=== PATIENT | female | born 1950 | race Caucasian/White ===

== ENCOUNTER → 2021-04-22 05:00 | Outpatient (CLI) | payer MEDICARE, BC, SELFPAY ==
[2021-04-22 16:43] LABS: SARS-CoV-2 RNA PCR Negative
== END ==
PROVIDERS: PCP Family Medicine; Visit Provider Family Medicine
DX: J01.00 Acute maxillary sinusitis, unspecified (principal); Z20.822 Contact with and (suspected) exposure to COVID-19
CPT/HCPCS: C9803; U0003; U0005

== ENCOUNTER 2022-05-30 13:32 | Outpatient (CLI) | payer MEDICARE, BC, SELFPAY ==
--- NOTE | ~2022-05-30 | MM_ITS ---
EXAMINATION: MM screening marielle BI w zamzam HISTORY: Screening mammogram TECHNIQUE: Craniocaudal and mediolateral oblique 3-D tomosynthesis images were obtained and synthetic 2-D images were generated. CAD analysis was submitted and interpreted. COMPARISON: No prior mammogram is available for comparison at this institution. BREAST PARENCHYMAL COMPOSITION: The breasts are almost entirely fatty. FINDINGS: No suspicious mass, calcification, or architectural distortion are identified in either seymour ast to suggest malignancy. IMPRESSION: 1. No mammographic evidence of malignancy. 2. Recommend routine screening mammography in one year. BI-RADS Category 1: Negative Reviewed, dictated and finalized at location A. FOREMAN
== END 2022-05-30 13:33 | disposition home or self-care (01) ==
PROVIDERS: PCP Family Medicine; Visit Provider Family Medicine
DX: Z12.31 Encounter for screening mammogram for malignant neoplasm of breast (principal)
CPT/HCPCS: 77063; 77067

== ENCOUNTER 2024-04-30 11:42 | Outpatient (CLI) | payer MEDICARE, BC, SELFPAY ==
--- NOTE | 2024-04-30 11:51 | ECG_ITS ---
Test Date: 2024-04-30 12:06:47 Measurements Intervals Zenia Rate: 106 P: 61 IL: 163 QRS: 3 QRSD: 105 T: 21 QT: 323 QTc: 430 Interpretive Statements SINUS TACHYCARDIA LOW QRS VOLTAGE IN PRECORDIAL LEADS [QRS DEFLECTION < 1.0 mV IN CHEST LEADS] RIGHT BUNDLE BRANCH BLOCK MODERATE T-WAVE ABNORMALITY, CONSIDER ANTERIOR ISCHEMIA [-0.1+ mV T-WAVE IN V3/V4] No previous ECG available for comparison Electronically Signed On 04-30-2024 14:48:56 CDT by Sheree Mata M.D.
== END 2024-04-30 11:43 | disposition home or self-care (01) ==
LOC: ANHCARD 11:46
PROVIDERS: PCP Family Medicine; Visit Provider Nurse Practitioner
DX: R00.0 Tachycardia, unspecified (principal); R06.00 Dyspnea, unspecified; I45.10 Unspecified right bundle-branch block
CPT/HCPCS: 93005

== ENCOUNTER 2024-04-30 17:09 | Emergency (ER) | payer MEDICARE, BC, SELFPAY ==
[2024-04-30 17:12] VITALS: BP 154/75; PULSE 120; RESP 18; TEMP 36.6; O2SAT 98
--- NOTE | 2024-04-30 18:09 | PC.NURSE ---
pt leaving d/t people in the waiting room, also people here may have infections, that she does not want to catch. will come back in AM
== END 2024-04-30 19:24 | disposition left against medical advice (07) ==
LOC: ANHED 19:23
PROVIDERS: PCP Family Medicine
DX: R00.0 Tachycardia, unspecified (principal)
CPT/HCPCS: 99199

== ENCOUNTER 2024-05-13 09:54 | Outpatient (CLI) | payer MEDICARE, BC, SELFPAY ==
--- NOTE | ~2024-05-13 | CT_ITS ---
EXAMINATION: CTA abdomen pelvis DATE: 05/13/2024 10:21 INDICATION: Right upper quadrant abdominal pain TECHNIQUE: Computed tomographic angiography (CTA) of the abdomen and pelvis was performed with 100 mL Omnipaque-350 intravenous contrast. Additional 3D reconstructions utilizing rotating maximum intensi ty projection (MIP) were performed. Automated exposure control and iterative reconstruction technique were employed. The dose-length product was 1317.05 mGy-cm. COMPARISON: MRI dated 12/26/[address] dated 12/21/2016 FINDINGS: Heart size is normal. Mild discoid atelectasis in the right middle and lower lobes. No pericardial or pleural effusion. Small sliding-type hiatal hernia. Chronic intra and extrahepatic ductal or ductal dilation with common bile duct measuring up to 11 mm which is likely related to prior cholecystectomy with surgical clips at the gallbladder fossa. 8 mm cyst in the right hepatic lobe. Numerous splenic calcification consistent with old granulomatous disease. Pancreas and bilateral adrenal glands are no rmal. Asymmetric mild diffuse cortical atrophy at the left kidney relative to the right. There are bi lateral low-attenuation nonenhancing renal cysts the larger on the left measuring 1.8 cm. Bladder is normal. The uterus is not identified and has likely been surgically resected. Pelvic floor relaxation . Bowels including the appendix are normal. Tiny fat-containing umbilical hernia. No free intraperit barragan gas or fluid. No pathologically enlarged abdominal or pelvic lymphadenopathy. There is mild sca ttered calcified atherosclerosis along the normal caliber aorta and at the margins of several of the arteries arising from the aorta. No aneurysm or dissection. Moderate thoracolumbar spondylosis. L4-S1 instrumented posterior spinal fusion with bilateral vertical andrew and pedicle screw fixation. IMPRESSION: 1. No acute intra-abdominal/pelvic process. Reviewed, dictated and finalized at location B. R WATCHSTANDER
[2024-05-13 10:18] LABS: Estimated Glomerular Filt Rate > 60
== END 2024-05-13 09:55 | disposition home or self-care (01) ==
PROVIDERS: PCP Family Medicine; Visit Provider Nurse Practitioner
DX: R10.11 Right upper quadrant pain (principal)
CPT/HCPCS: 74174; Q9967

== ENCOUNTER 2024-08-30 08:35 | Outpatient (CLI) | payer MEDICARE, BC, SELFPAY | END 2024-08-30 08:36 | disposition home or self-care (01) | PROVIDERS: PCP Family Medicine; Visit Provider Orthopaedic Surgery | DX: M75.82 Other shoulder lesions, left shoulder (principal); M19.012 Primary osteoarthritis, left shoulder; M75.52 Bursitis of left shoulder; M67.814 Other specified disorders of tendon, left shoulder | CPT/HCPCS: 73221 ==